=== PATIENT | male | born 1960 | race Caucasian/White ===

== ENCOUNTER → 2021-06-18 10:56 | Outpatient (CLI) | payer BC, SELFPAY ==
--- NOTE | ~2021-06-18 | US_ITS ---
EXAMINATION: US abdomen complete DATE: 06/18/2021 11:18 INDICATION: Other specified abnormal findings of blood chemistry, elevated liver function TECHNIQUE: Multiple grayscale and Doppler ultrasound images of the abdomen were obtained. COMPARISON: None available FINDINGS: Bowel gas obscures visualization of the pancreas. The visualized portions of the pancreas a re unremarkable. The liver is normal with normal echogenicity and echotexture. No surface nodularity. Normal hepatopetal flow in the main portal vein. There is a 4 mm immobile, echogenic focus in the de pendent portion of the gallbladder with no posterior shadowing. The gallbladder is otherwise normal w ith no abnormal wall thickening, pericholecystic fluid or stones. The normal common bile duct measure s 3 mm. There was no sonographic Jaeger sign. The visualized portions of the aorta and inferior vena cava are normal. The right kidney measures 10.2 x 5.3 x 6.7 cm. The left kidney measures 10.8 x 5.3 x 5.2 cm. The kidn eys demonstrate normal parenchymal echogenicity. There is no hydronephrosis. The spleen is normal in appearance and measures 10.3 cm. IMPRESSION: 1. No sonographic correlate for the patient's symptoms. 2. 4 mm echogenic focus in the gallbladder which could reflect small polyp or stone. Reviewed, dictated and finalized at location B. IMPRESSION: 1. No sonographic correlate for the patient's symptoms. 2. 4 mm echogenic focus in the gallbladder which could reflect small polyp or s tone.
== END ==
PROVIDERS: PCP Family Medicine; Visit Provider Physician Assistant
DX: R79.89 Other specified abnormal findings of blood chemistry (principal)
CPT/HCPCS: 76700

== ENCOUNTER 2024-04-13 09:51 | Outpatient (CLI) | payer BC, SELFPAY ==
--- NOTE | ~2024-04-13 | US_ITS ---
EXAMINATION: US abdomen limited DATE: 04/13/2024 11:03 INDICATION: Other specified abnormal findings of blood chemistry TECHNIQUE: Multiple grayscale and Doppler ultrasound images of the abdomen were obtained. COMPARISON: 06/18/2021 FINDINGS: The pancreatic head and body are normal in appearance. The pancreatic tail is not visualized. The vi sualized inferior vena cava is normal. Liver has normal echogenicity and contour, with a smooth surfa ce. No liver lesion identified. No intrahepatic biliary duct dilation suspected. Portal venous flow w as seen in the hepatopetal, normal direction and has normal Doppler waveform. The gallbladder is norm al in appearance. The previously seen small nodular echogenic focus near the neck of the gallbladder is not identified on the current study. There is no cholelithiasis. The common bile duct measures 6 m m, which is normal. Sonographic Jaeger sign was reported as negative by the manager behavior. IMPRESSION: 1. Normal right upper quadrant ultrasound. Reviewed, dictated and finalized at location A.
== END 2024-04-13 09:52 | disposition home or self-care (01) ==
LOC: ANHIMG 09:54
PROVIDERS: PCP Family Medicine; Visit Provider Physician Assistant Medical
DX: R79.89 Other specified abnormal findings of blood chemistry (principal)
CPT/HCPCS: 76705

== ENCOUNTER 2025-07-02 08:49 | Outpatient (CLI) | payer BC, SELFPAY ==
--- OUTSIDE RECORDS SUMMARY | 2025-07-02 08:56 | XMS_ITS | Clinical Summary ---
Author Organization [facility] Address [address] [place]: [place] [address] Care Team Providers Care Rehabilitation Clerk Name Role Phone Unavailable Primary Care Provider Unavailabl e Medications cyclobenzaprine (FLEXERIL) 10 mg tablet Take 1 Tablet (10 mg) by mouth 3 times daily as needed for muscle spasms. 60 Tablet 03/14/2023 4:19 PM CDT 3 Active loratadine (CLARITIN) 10 mg tablet Take 1 Tablet (10 mg) by mouth daily. 30 Tablet 1 05/21/2024 3:08 PM CDT 3 Active fluticasone propionate (FLONASE) 50 mcg/spray [place], Suspension nasal inhaler ADMINISTER 1 SPRAY IN EACH NOSTRIL EVERY 12 HOURS. 16 Gram 03/19/2024 6:29 PM CDT 4 Active montelukast (SINGULAIR) 10 mg tablet Take 1 Tablet (10 mg) by mouth daily at bedtime. 30 Tablet 2 05/21/2024 3:08 PM CDT 4 Active montelukast (SINGULAIR) 10 mg tablet Take 1 Tablet (10 mg) by mouth daily at bedtime. 30 Tablet 2 5 Active Social History Tobacco Use Types Packs/Day Years Used Date Smoking Tobacco: Never Assessed Sex and Gender Information Value Date Recorded Sex Assigned at Not on file Legal Sex Male 3:26 PM CDT Gender Identity Not on file Sexual Orientation Not on file Plan of Treatment Health Maintenance Due Date Last Done Comments DTAP/TDAP/TD VACCINES (1 - Tdap) 1978 COLORECTAL SCREENING 2004 Colorectal Cancer Screening 2004 FIT-DNA Q 3 years 2004 FIT/FOBT Q 1 year 2004 Flex Sig/CT Colonography Q 5 years 2004 PNEUMOCOCCAL VACCINE 50+ YEARS (1 of 1 - PCV) 05/26/20 09 ZOSTER VACCINE (1 of 2) 2009 INFLUENZA VACCINE (#1) 2025 RSV VACCINE (60+ or ) (1 - 1-dose 75+ series) 2034 Insurance RX [facility] [employer]
[2025-07-02 09:29] LABS: Hematocrit 44.6 % (42.0-52.0); Hemoglobin 14.8 g/dL (14.0-18.0); Mean Corpuscular HGB Conc 33.2 g/dl (32-36); Mean Corpuscular Hemoglobin 29.7 pg (26-34); Mean Corpuscular Volume 89.4 fl (80-100); Platelet Count Result 278 k/mm3 (150-375); Red Blood Count 4.99 M/mm3 (4.6-6.20); White Blood Count 8.3 K/mm3 (4.5-10.0)
[2025-07-02 10:03] LABS: Alanine Aminotransferase 52 U/L (6-50); Albumin Level 4.6 g/dL (3.5-5.1); Alkaline Phosphatase 95 U/L (38-126); Anion Gap 9 mmol/L (4-12); Aspartate Amino Transferase 42 U/L (17-59); Bilirubin,Total 0.7 mg/dL (0.2-1.3); Blood Urea Nitrogen 10 mg/dL (9-20); Calcium 9.5 mg/dL (8.4-10.2); Carbon Dioxide 26 mmol/L (22-30); Chloride 100 mmol/L (98-107); Cholesterol 205 mg/dL (0-200); Estimated Glomerular Filt Rate > 60; Glucose 101 mg/dL (65-110); HDL Direct 32 mg/dL; Potassium 4.3 mmol/L (3.4-5.0); Sodium 135 mmol/L (137-145); Total Protein 8.5 g/dL (6.3-8.2); Triglycerides 146 mg/dL (<150)
[2025-07-02 10:38] LABS: Prostate Specific Antigen 3.1 ng/mL (< OR = 4.0)
== END 2025-07-02 08:50 | disposition home or self-care (01) ==
LOC: ANHLAB 08:51
PROVIDERS: PCP Family Medicine; Visit Provider Family Medicine
DX: Z00.00 Encounter for general adult medical examination without abnormal findings (principal); Z12.5 Encounter for screening for malignant neoplasm of prostate; R53.83 Other fatigue
CPT/HCPCS: 36415; 80053; 80061; 84153; 85027; G0103